=== PATIENT | male | born 2000 | race Hispanic/Latino ===

== ENCOUNTER 2023-03-20 09:30 | Emergency (ER) | payer OTHER ==
[2023-03-20] VITALS (9 sets, daily range): BP systolic 92–109; BP diastolic 60–66
[~2023-03-20] VITALS: Ht 160 cm; Wt 70.0 kg
[2023-03-20] MEDS ORDERED: PREDNISONE20 MG PO (14:37)
[2023-03-20] MEDS ORDERED: METHOCARBAMOL500 MG PO (14:37)
[2023-03-20] MEDS ORDERED: NAPROXEN500 MG PO (14:37)
== END 2023-03-20 15:09 | disposition home or self-care (01) | DRG 552 ==
LOC: ED 09:30
DX: S16.1XXA Strain of muscle, fascia and tendon at neck level, initial encounter (principal); S39.012A Strain of muscle, fascia and tendon of lower back, initial encounter; X50.3XXA Overexertion from repetitive movements, initial encounter; Y93.89 Activity, other specified; Y92.73 Farm field as the place of occurrence of the external cause; Y99.0 Civilian activity done for income or pay